=== PATIENT | female | born 1940 | race Caucasian/White ===

== ENCOUNTER 2018-02-26 13:15 | Emergency (ER) | payer MEDICARE, OTHER ==
[~2018-02-26] VITALS: Ht 157.5 cm; Wt 72.6 kg
[~2018-02-26 13:15] MED LIST: AMOX500 PO; ASPI81CH PO; METO50ER PO; ONDA4ODT MM; SPIR25 PO
[2018-02-26 15:06] LABS: Albumin, Blood 3.6 g/dL (3.4-5.0); Albumin/Globulin Ratio 0.7 (0.8-1.8); Bilirubin, Total 0.4 mg/dL (0.1-1.0); Bun/Creatinine Ratio 23.7 (12.0-20.0); Calcium, Blood 9.3 mg/dL (8.5-10.1); Creatinine, Blood 0.97 mg/dL (0.40-1.00); Globulin, Blood 5.2 g/dL (2.2-4.0); Potassium, Blood 3.7 mmol/L (3.5-5.5); Total Protein, Blood 8.8 g/dL (6.4-8.2)
[2018-02-26 15:12] LABS: BASOPHILS ABSOLUTE AUTO 0.03 K/mm3 (0.00-0.23); BASOPHILS PERCENT AUTO 0 % (0-2); EOSINOPHILS ABSOLUTE AUTO 0.17 K/mm3 (0.00-0.68); EOSINOPHILS PERCENT AUTO 2 % (0-6); Hematocrit 38.3 % (33.0-51.0); Hemoglobin 12.4 g/dL (11.5-16.0); IMMATURE GRAN ABSOLUTE AUTO 0.02 K/mm3 (0.00-0.10); IMMATURE GRAN PERCENT AUTO 0 % (0-1); LYMPHOCYTES ABSOLUTE AUTO 2.38 K/mm3 (0.84-5.20); LYMPHOCYTES PERCENT AUTO 24 % (21-46); MONOCYTES ABSOLUTE AUTO 0.93 K/mm3 (0.16-1.47); MONOCYTES PERCENT AUTO 9 % (4-13); Mean Corpuscular HGB Conc 32.4 g/dL (31.5-36.5); Mean Corpuscular Volume 99 fL (80-100); Mean Platelet Volume 11.3 fL (9.1-12.4); NEUTROPHILS ABSOLUTE AUTO 6.57 K/mm3 (1.96-9.15); NEUTROPHILS PERCENT AUTO 65 % (41-73); Platelet Count 238 K/mm3 (150-400); RDW Coefficient Variation 13.1 % (11.7-14.2); RDW Standard Deviation 47.3 fL (35.1-46.3); Red Blood Cell Count 3.87 M/mm3 (3.80-5.20)
[2018-02-26] MEDS ORDERED: Augmentin 875-1 EACH PO (16:00)
== END 2018-02-26 16:51 | disposition home or self-care (01) ==
LOC: ER 13:15
PROVIDERS: Emergency Medicine
DX: S91.351A Open bite, right foot, initial encounter (principal); L02.611 Cutaneous abscess of right foot; I25.10 Atherosclerotic heart disease of native coronary artery without angina pectoris; Z79.899 Other long term (current) drug therapy; Z79.82 Long term (current) use of aspirin; W55.01XA Bitten by cat, initial encounter
CPT/HCPCS: 10060; 36415; 73630; 80053; 85025; 96365; 99283; J2543

== ENCOUNTER → 2018-08-15 | Outpatient (CLI) | payer MEDICARE, OTHER ==
[~2018-08-15] MED LIST changes: +Augmentin 875-1 EACH PO
[2018-08-18 21:06] LABS: HSV-1 DNA Negative (Negative); HSV-2 DNA Negative (Negative)
[2018-08-22 12:07] LABS: VZV REAL TIME PCR Positive (Negative)
== END ==
LOC: LAB SHORT 16:51 → LAB 16:51
PROVIDERS: Physician Assistant
DX: L30.9 Dermatitis, unspecified (principal)
CPT/HCPCS: 87070; 87205; 87529; 87798

== ENCOUNTER → 2019-08-30 | Outpatient (CLI) | payer MEDICARE, OTHER ==
[2019-09-03 14:06] LABS: M-SPIKE, % Not Observed % (Not Observed); PROTEIN,TOTAL,URINE 5.4 mg/dL (Not Estab.)
== END | disposition home or self-care (01) ==
LOC: OLS 10:00 → LAB SHORT 10:00 → LAB FUT 08-28 14:20
PROVIDERS: Internal Medicine
DX: Z00.01 Encounter for general adult medical examination with abnormal findings (principal)
CPT/HCPCS: 81050; 84166; 86335

== ENCOUNTER 2020-04-24 09:26 | Emergency (ER) | payer MEDICARE, OTHER ==
[~2020-04-24] VITALS: Ht 157.5 cm; Wt 74.8 kg
[2020-04-24] MEDS ORDERED: Norco 5-325 Ta1 EACH PO (10:54)
== END 2020-04-24 11:25 | disposition home or self-care (01) ==
LOC: ER 09:26
DX: S52.502A Unspecified fracture of the lower end of left radius, initial encounter for closed fracture (principal); I25.10 Atherosclerotic heart disease of native coronary artery without angina pectoris; Z79.899 Other long term (current) drug therapy; Z79.82 Long term (current) use of aspirin; W18.30XA Fall on same level, unspecified, initial encounter
CPT/HCPCS: 73110; 99283-25

== ENCOUNTER → 2023-04-11 | Outpatient (CLI) | payer MEDICARE, OTHER ==
[~2023-04-11] MED LIST changes: +HYDCHL25 PO; +HYDR1TAB94 PO; +METPRE4DP PO; +Norco 5-325 Ta1 EACH PO
[2023-04-14 12:08] LABS: M-SPIKE, % Not Observed % (Not Observed); PROTEIN,TOTAL,URINE 7.2 mg/dL (Not Estab.)
== END ==
LOC: LAB 08:30 → LAB SHORT 08:30 → LAB FUT 03-14 08:55
PROVIDERS: Internal Medicine
DX: E87.8 Other disorders of electrolyte and fluid balance, not elsewhere classified (principal)
CPT/HCPCS: 81050; 84156; 84166

== ENCOUNTER → 2023-05-10 | Outpatient (CLI) | payer MEDICARE, OTHER ==
[2023-05-10 09:21] LABS: Source, Urine Clean Catch
[2023-05-10 10:30] LABS: Appearance, Urine Clear (Clear); Bilirubin, Urine Neg (Neg); Blood, Urine Neg (Neg); Color, Urine Yellow (P-Yellow); Glucose Qualitative, Urine Neg (Neg); Ketones, Urine Neg (Neg); Leukocyte Esterase, Urine 3+ (Neg); Nitrite, Urine Pos (Neg); Protein, Urine 1+ (Neg); Specific Gravity, Urine 1.015 (1.003-1.022); Urobilinogen, Urine NORM (Normal)
[2023-05-10 11:10] LABS: Bacteria Many /hpf; Red Blood Cells, Urine 0-2 /hpf (0-2); Squamous Epithelial Cells Few /hpf (Few); White Blood Cells, Urine 25-50 /hpf (0-5)
== END | disposition home or self-care (01) ==
LOC: LAB 09:20 → LAB SHORT 09:20
PROVIDERS: Internal Medicine
DX: N39.0 Urinary tract infection, site not specified (principal)
CPT/HCPCS: 81001

== ENCOUNTER 2024-07-30 02:56 | Inpatient (IN) | payer MEDICARE, OTHER ==
[2024-07-30] VITALS (14 sets, daily range): BP systolic 107–162; BP diastolic 57–92
[~2024-07-30] VITALS: Ht 157.5 cm; Wt 69.8 kg
[2024-07-30] MEDS ORDERED: FentaNYL Citrate 50 MCG/ML 2 ML Injection IV PRN ×2 (04:35→04:55)
[2024-07-30] MEDS ORDERED: Ondansetron HCl 2 MG / ML 2ML Vial IV PRN (04:55)
[2024-07-30] MEDS ORDERED: NS 1,000 ML IV SCH (04:55)
[2024-07-30 05:16] LABS: BASOPHILS ABSOLUTE AUTO 0.04 K/mm3 (0.00-0.23); BASOPHILS PERCENT AUTO 0 % (0-2); EOSINOPHILS ABSOLUTE AUTO 0.35 K/mm3 (0.00-0.68); EOSINOPHILS PERCENT AUTO 3 % (0-6); Hematocrit 33.2 % (33.0-51.0); Hemoglobin 10.6 g/dL (11.5-16.0); IMMATURE GRAN ABSOLUTE AUTO 0.05 K/mm3 (0.00-0.10); IMMATURE GRAN PERCENT AUTO 1 % (0-1); LYMPHOCYTES ABSOLUTE AUTO 2.11 K/mm3 (0.84-5.20); LYMPHOCYTES PERCENT AUTO 20 % (21-46); MONOCYTES ABSOLUTE AUTO 0.81 K/mm3 (0.16-1.47); MONOCYTES PERCENT AUTO 8 % (4-13); Mean Corpuscular HGB 31.8 pg (26.0-34.0); Mean Corpuscular HGB Conc 31.9 g/dL (31.5-36.5); Mean Corpuscular Volume 100 fL (80-100); NEUTROPHILS ABSOLUTE AUTO 7.04 K/mm3 (1.96-9.15); NEUTROPHILS PERCENT AUTO 68 % (41-73); RDW Coefficient Variation 15.5 % (11.7-14.2); RDW Standard Deviation 56.1 fL (35.1-46.3); Red Blood Cell Count 3.33 M/mm3 (3.80-5.20)
[2024-07-30 05:23] LABS: Mean Platelet Volume 11.4 fL (9.1-12.4); Platelet Count 201 K/mm3 (150-400)
[2024-07-30 05:30] LABS: Albumin, Blood 3.1 g/dL (3.4-5.0); Albumin/Globulin Ratio 0.7 (0.8-1.8); Bilirubin, Total 0.4 mg/dL (0.1-1.0); Calcium, Blood 9.5 mg/dL (8.5-10.1); Globulin, Blood 4.7 g/dL (2.2-4.0); Total Protein, Blood 7.8 g/dL (6.4-8.2)
[2024-07-30 06:42] LABS: International Normalized Ratio 1.04; Prothrombin Time Results 11.1 Sec (9.7-11.5)
[2024-07-30] MEDS ORDERED: HYDROmorphone HCl/Pf 1MG SYR IV ONE (07:15)
--- NOTE | 2024-07-30 07:46 | NUR ---
MEDICATED PER EMAR THIS RN WASTED 0.5 OF DILAUDID WITH PRECEPTOR MIKE AND JET DYEING MACHINE TENDER CARISSA. THEN MEDICATED PT W/ 0.5 OF DILAUDID PER EMAR W/ PRECEPTOR MIKE PRESENT IN ROOM. PT ZACARIAS. WELL. PT PLACED ON CONTINOUS PULSE OX. CALL LIGHT IN REACH. PT SPOUSE AT BEDSIDE.
[2024-07-30] MEDS ORDERED: Lactated Ringer's 1,000 ML IV SCH (14:20)
--- NOTE | 2024-07-30 14:20 | NUR ---
PT TO DAY SURGERY FOR L INTRAMEDULLARY TROCHANTERIC NAIL BY DR ORELLANA. PT AT BEDSIDE. CHART REVIEWED. PLAN OF CARE DISCUSSED WITH PT AND HER ; QUESTIONS ANSWERED. PT NPO SINCE YESTERDAY.
--- NOTE | 2024-07-30 14:31 | NUR ---
PT TO DAY SURGERY WITH 20G IV TO RIGHT FA
[2024-07-30] MEDS ORDERED: CeFAZolin Sodium 2,000 MG in NS 100 ML IV SCH (15:15)
[2024-07-30] MEDS ORDERED: Chlorhexidine Mouth Care 15 ML UDC MT SCH (15:15)
[2024-07-30] MEDS ORDERED: Tranexamic Acid 100 ML IV SCH (15:21)
[2024-07-30] MEDS ORDERED: Bupivacaine 0.5% HCl 5 MG/ML 30MLVIAL ONE (15:44)
[2024-07-30] MEDS ORDERED: FentaNYL Citrate 50 MCG/ML 2 ML Injection ONE (16:00)
[2024-07-30] MEDS ORDERED: propofoL 20 ML IV ONE (16:02)
[2024-07-30] MEDS ORDERED: propofoL 40 ML IV ONE (16:03)
[2024-07-30] MEDS ORDERED: ePHEDrine Sulfate 50 MG/ML 1ML Injection ONE (16:30)
[2024-07-30] MEDS ORDERED: EpiNEPhrine 1 MG/1 ML 1ML Vial ONE (16:31)
[2024-07-30] MEDS ORDERED: HYDROmorphone HCl/Pf 1MG SYR ONE (17:00)
[2024-07-30] MEDS ORDERED: Esmolol HCL 10 MG/ML 10ML VIAL ONE (17:38)
--- NOTE | 2024-07-30 18:45 | NUR ---
ASSUMED CARE AT 0700, A/A/OX4, SPOUSE AT BEDSIDE. LAYING SUPINE IN BED, MEDICATED FOR PAIN. DECLINES REPOSITIONING. PURWICK IN PLACE DRAINING TO SUCTION. HIP SURGERY THIS EVENING, RETURNED TO ROOM AT 1830, VSS, WILL CONTINUE TO MONITOR AND TREAT UNTIL CHANGE OF SHIFT.
[2024-07-30] MEDS ORDERED: Metoprolol Succinate 50 MG TABCR PO SCH (21:00)
[2024-07-31 03:43] VITALS: BP 141/66
--- NOTE | 2024-07-31 05:06 | NUR ---
SHIFT SUMMARY POD 1 L HIP NAILING PT SLEPT T/O NIGHT. PT STATES PAIN HAS BEEN MANAGEABLE, HAS SOME PAIN WHEN MOVED. PT TOLERATING PO INTAKE, HAS MINIMAL VOIDING. PT REAMINS ON 1L NC WHEN SLEEPING. X2 AQUACEL TO L HIP ARE C/D/I. VSS. NO OTHER CONCERNS AT THIS TIME, CALL LIGHT WITHIN REACH
[2024-07-31 05:29] LABS: BASOPHILS ABSOLUTE AUTO 0.02 K/mm3 (0.00-0.23); BASOPHILS PERCENT AUTO 0 % (0-2); EOSINOPHILS ABSOLUTE AUTO 0.09 K/mm3 (0.00-0.68); EOSINOPHILS PERCENT AUTO 1 % (0-6); Hematocrit 29.4 % (33.0-51.0); Hemoglobin 9.4 g/dL (11.5-16.0); IMMATURE GRAN ABSOLUTE AUTO 0.03 K/mm3 (0.00-0.10); IMMATURE GRAN PERCENT AUTO 0 % (0-1); LYMPHOCYTES PERCENT AUTO 14 % (21-46); MONOCYTES ABSOLUTE AUTO 0.79 K/mm3 (0.16-1.47); MONOCYTES PERCENT AUTO 8 % (4-13); Mean Corpuscular HGB 32.6 pg (26.0-34.0); Mean Corpuscular Volume 102 fL (80-100); Mean Platelet Volume 11.4 fL (9.1-12.4); NEUTROPHILS ABSOLUTE AUTO 7.38 K/mm3 (1.96-9.15); NEUTROPHILS PERCENT AUTO 76 % (41-73); Platelet Count 171 K/mm3 (150-400); RDW Coefficient Variation 15.5 % (11.7-14.2); RDW Standard Deviation 57.9 fL (35.1-46.3); Red Blood Cell Count 2.88 M/mm3 (3.80-5.20); White Blood Cell Count 9.71 K/mm3 (4.00-11.30)
[2024-07-31 06:21] LABS: Bun/Creatinine Ratio 20.5 (12.0-20.0); Calcium, Blood 8.8 mg/dL (8.5-10.1); Creatinine, Blood 0.88 mg/dL (0.40-1.00); Potassium, Blood 4.1 mmol/L (3.5-5.5)
[2024-07-31 07:07] VITALS: BP 124/57
[2024-07-31] MEDS ORDERED: HYDROcodone 5-APAP 325 TAB PO PRN (07:30)
[2024-07-31] MEDS ORDERED: Nitroglycerin 0.4 MG SUBL SL ONE (08:05)
[2024-07-31] MEDS ORDERED: Aspirin 81 MG Chew PO ONE (09:35)
[2024-07-31] MEDS ORDERED: Atorvastatin 10 MG Tab PO SCH (09:40)
[2024-07-31] MEDS ORDERED: Acetaminophen 325 MG TABLET PO PRN (09:45)
--- NOTE | 2024-07-31 14:26 | NUR ---
CHEST PAIN: THIS RN IN ROOM AT ABOUT 0755 FOR HEAD TO TOE ASSESSMENT. PT REPORTED CP AT L SIDE OF CHEST AND ABD. PT REPORTED A DULL ACHE, NOT SHARP OR SHOOTING PAIN AND DENIED WEAKNESS OR SOB. PT SAID "IT FEELS LIKE IT DID BEFORE MY HEART ATTACK". VSS AT THIS TIME AND TELE STABLE PER MEDIA SALES REPRESENTATIVE LINA. DR. DAVID NOTIFIED OF THIS AT 0805. SEE NEW ORDERS. DEMONSTRATOR KNITTING KIM ALSO MADE AWARE. PT INSTRUCTED TO CALL NURSING STAFF IF PAIN WORSENS OR IF SHE HAS DIZZINESS. EKG COMPLETED AND IN CHART. LAB CALLED FOR TROPONIN DRAW. PT CALL LIGHT IN REACH AND BED ALARM ON FOR SAFETY.
--- NOTE | 2024-07-31 15:04 | NUR ---
SUMMARY: PT IS POD1 L HIP PINNING. A/O, VS AND TELE STABLE. SEE PREVIOUS NOTE. NO C/O CP THE REMAINDER OF MY SHIFT. ECHO COMPLETED AND AWAITING RESULTS. PT WAS UNABLE TO WORK WITH THERAPY DUE TO PAIN LEVEL, DID BED EXERCISE. PT RATES PAIN 0/10 WHILE NOT MOVING, BUT 10/10 WITH ANY MOVEMENT AND SCREAMS IN PAIN. PT GIVEN TYLENOL AT REQUEST OF NO NARCOTICS. TRYING TO ENCOURAGE MOBILITY. CONT BIOX IN PLACE. SP2 STABLE ON RA. NO ACUTE SAFETY CONCERNS AT THIS TIME.
[2024-07-31 15:23] VITALS: BP 105/56
--- NOTE | 2024-07-31 16:00 | NUR ---
ASSUMED CARE OF PATIENT AT THIS TIME. PT AT BEDSIDE. PT DENIES PAIN AT THIS TIME. WILL CONT TO MONITOR AND TREAT.
--- NOTE | 2024-07-31 17:40 | NUR ---
PT STABLE. POD #1 LEFT HIP NAILING. PT TAKING TYLENOL FOR PAIN. UNABLE TO WORK WITH THERAPY TO MOBILIZE THIS AM. WBAT. PT HAS NOT HAD FURTHER CP THIS SHIFT. ECHO COMPLETED. EKG COMPLETED. CRITICAL TROPONIN. PLAN FOR STRESS TEST TOMORROW. NPO AFTER MIDNIGHT. TELE NSR. PAS TO BLE. CONT BIOX IN PLACE. SATS STABLE ON RA. PUREWICK IN PLACE DRAINING CLEAR URINE. AQUACEL CLEAN AND DRY. PALLIATIVE CARE CONSULT. USES CALL LIGHT APPROPRIATELY.
[2024-07-31 19:22] VITALS: BP 126/52
--- NOTE | 2024-07-31 20:14 | NUR ---
replaced Purewick for start of shift
--- NOTE | 2024-07-31 20:45 | NUR ---
PHONE CALL TO PER STAGING TECHNICIAN REQUEST WITH PT URINE FOUL ODORED AND PT HAVING URINARY RETENTION NOTED,DISCUSSED WBC RESULT AND ABOVE.ORDER RECEIVED FOR BLADDER SCAN AND STRAIGHT CATH FOR RETENTION PER ORDER.
[2024-07-31 21:06] LABS: Source, Urine Straight Cath
[2024-07-31 21:10] LABS: Appearance, Urine Hazy (Clear); Bilirubin, Urine Neg (Neg); Blood, Urine Neg (Neg); Color, Urine Yellow (P-Yellow); Glucose Qualitative, Urine Neg (Neg); Ketones, Urine Neg (Neg); Leukocyte Esterase, Urine 2+ (Neg); Nitrite, Urine Pos (Neg); Protein, Urine 1+ (Neg); Urobilinogen, Urine NORM (Normal)
[2024-07-31 21:17] LABS: Bacteria Many /hpf; Hyaline Casts 0-2 /lpf (0-2); Red Blood Cells, Urine Not Seen /hpf (0-2); Squamous Epithelial Cells Not Seen /hpf (Few)
[2024-08-01] MEDS ORDERED: Heparin Sodium,Porcine 5,000 UNIT/0.5 ML SDV SC SCH
[2024-08-01 03:11] VITALS: BP 121/63
--- NOTE | 2024-08-01 05:15 | NUR ---
SHIFT SUMMARY POD 2 L HIP NAILING PT RESTLESS T/O SHIFT. PAIN MANAGED PER EMAR. PT NPO AT MD FOR STRESS TEST TODAY. PT HAS HAD INCREASE CONFUSION TONIGHT, PICKING AT THINGS AND ASK SAME QUESTIONS OVER AND OVER. PT STRAIGHT CATHED X1 AT THE START OF SHIFT. PT DID NOT VOID FOR THE REST OF SHIFT, BS THIS AM AND HAD ALMOST 500ML. CALLED AND ORDER OBTAINED FOR BETHEA CATH TO BE PLACED FOR RETNETION. BETHEA CATH PLACE THIS AM. PT HAS X2 AQUACEL TO L HIP, C/D/I. PT NOT TOLERATING VERY MUCH MOVEMENT, UNABLE TO GET OOB. VSS. NO OTHER CONCERNS AT THIS TIME, CALL LIGHT WITHIN REACH.
[2024-08-01 07:18] VITALS: BP 134/62
[2024-08-01 09:29] LABS: BASOPHILS ABSOLUTE AUTO 0.03 K/mm3 (0.00-0.23); BASOPHILS PERCENT AUTO 0 % (0-2); EOSINOPHILS ABSOLUTE AUTO 0.11 K/mm3 (0.00-0.68); EOSINOPHILS PERCENT AUTO 1 % (0-6); Hematocrit 27.2 % (33.0-51.0); IMMATURE GRAN ABSOLUTE AUTO 0.03 K/mm3 (0.00-0.10); IMMATURE GRAN PERCENT AUTO 0 % (0-1); LYMPHOCYTES ABSOLUTE AUTO 1.39 K/mm3 (0.84-5.20); LYMPHOCYTES PERCENT AUTO 14 % (21-46); MONOCYTES PERCENT AUTO 9 % (4-13); Mean Corpuscular HGB 32.7 pg (26.0-34.0); Mean Corpuscular HGB Conc 33.1 g/dL (31.5-36.5); Mean Corpuscular Volume 99 fL (80-100); Mean Platelet Volume 11.3 fL (9.1-12.4); NEUTROPHILS PERCENT AUTO 76 % (41-73); Platelet Count 168 K/mm3 (150-400); RDW Coefficient Variation 15.5 % (11.7-14.2); RDW Standard Deviation 55.5 fL (35.1-46.3); Red Blood Cell Count 2.75 M/mm3 (3.80-5.20); White Blood Cell Count 10.16 K/mm3 (4.00-11.30)
[2024-08-01 10:30] LABS: Bun/Creatinine Ratio 19.2 (12.0-20.0); Calcium, Blood 8.7 mg/dL (8.5-10.1); Creatinine, Blood 1.04 mg/dL (0.40-1.00); Potassium, Blood 4.1 mmol/L (3.5-5.5)
--- NOTE | 2024-08-01 10:59 | NUR ---
provided ice water per nuc med verbal order.
--- NOTE | 2024-08-01 11:53 | NUR ---
TO [facility] FOR STRESS TEST.
[2024-08-01] MEDS ORDERED: Caffeine Citrated 60 MG/3 ML Vial ONE (14:15)
[2024-08-01] MEDS ORDERED: Regadenoson 0.4 MG/5 ML SYRINGE ONE (14:15)
--- NOTE | 2024-08-01 14:40 | NUR ---
[facility] IN ROOM ADMINISTERING STRESS TEST.
--- NOTE | 2024-08-01 14:54 | NUR ---
GAVE PT CHEESE AND CRACKERS PER [facility] MED INSTRUCTION. PT STATED NOT HUNGRY, ENCOURAGED PT TO EAT CHEESE.
--- NOTE | 2024-08-01 15:45 | NUR ---
PT TO IMAGING.
[2024-08-01 16:18] VITALS: BP 130/57
--- NOTE | 2024-08-01 19:09 | NUR ---
SUMMARY NO ACUTE CHANGES T/O SHIFT. PT'S SPOUSE BROUGHT IN HOME CPAP. STRESS TEST COMPLETED TODAY. PT APPEARED PAINFUL ONLY W/TRANSFERS FROM BED TO [facility] FOR PORTIONS OF STRESS TEST. CONFUSED AT TIMES/SPOUSE REPORTS THIS IS BASELINE. BED ALARM ON FOR SAFETY. CALL LIGHT IN REACH. REPORT GIVEN TO ONCOMING SHIFT.
[2024-08-01 19:29] VITALS: BP 119/51
--- NOTE | 2024-08-02 04:14 | NUR ---
SHIFT SUMMARY POD 3 L HIP NAILING PT ABLETO REST DURING THE NIGHT. PT STATES THAT SHE IS NOT IN ANY PAIN. PT TOLERATING PO INTAKE, BETHEA DRAINING LEXY COLORED URINE. X2 AQUACEL C/D/I. PT ATTEMPTED TO WEAR CPAP TONIGHT, KEPT TAKING IT OFF WHILE SLEEPING, TURNED OFF CPAP AND PLACED ON 2L NC FOR THE REST OF THE NIGHT. VSS. NO OTHER COCERNS AT THIS TIME, CALL LIGHT WITHIN REACH
[2024-08-02 04:21] VITALS: BP 129/73
[2024-08-02 07:26] VITALS: BP 114/60
--- NOTE | 2024-08-02 11:15 | NUR ---
TELE BOX RETURNED TO PCU.
--- NOTE | 2024-08-02 11:29 | NUR ---
REPORT CALLED TO [facility] TO CINDY JULIAN. DISCHARGE PACKET PREPARED BY CARE MANAGEMENT AND READY TO GO. TRANSPORT SCHEDULED FOR APPROX 1200. TOOK HOME PERSONAL BELONGINGS.
== END 2024-08-02 12:10 | DRG 482 ==
LOC: ER 02:56 → SURS 04:53
PROVIDERS: Family Medicine; Internal Medicine; Nurse Practitioner Acute Care; Orthopaedic Surgery; ADMIT Internal Medicine
PROC: 0QS734Z Reposition Left Upper Femur with Internal Fixation Device, Percutaneous Approach (ICD-10-PCS; principal; 2024-07-30 15:00)
DX: S72.142A Displaced intertrochanteric fracture of left femur, initial encounter for closed fracture (principal); D64.9 Anemia, unspecified; I10 Essential (primary) hypertension; I25.10 Atherosclerotic heart disease of native coronary artery without angina pectoris; F41.9 Anxiety disorder, unspecified; Z66 Do not resuscitate; Z51.5 Encounter for palliative care; E86.0 Dehydration; Z79.899 Other long term (current) drug therapy; Z79.891 Long term (current) use of opiate analgesic; Z95.1 Presence of aortocoronary bypass graft; Z98.890 Other specified postprocedural states; Z90.710 Acquired absence of both cervix and uterus; W18.30XA Fall on same level, unspecified, initial encounter
CPT/HCPCS: 36415; 51701; 51702; 73502; 73552; 78452; 80048; 80053; 81001; 83880; 84484; 85025; 85610; 86850; 86900; 86901; 87077; 87086; 87186; 93005; 93010; 93017; 93306; 94762; 97110; 97162; 97530; 99284-25; A9270; A9500; C1713; C1769; J0171; J0690; J0706; J1170; J1644; J2704; J2785; J3010; J7030; J7120